=== PATIENT | male | born 1980 | race Two or more races ===

== ENCOUNTER 2017-11-08 16:22 | Emergency (ER) | payer SELFPAY ==
[~2017-11-08] VITALS: Ht 167.6 cm; Wt 90.7 kg
[2017-11-08] MEDS ORDERED: MORPHINE SULFATE 4 MG/ML SYR/VIAL ONE (17:13)
[2017-11-08] MEDS ORDERED: ONDANSETRON HCL 4 MG/2 ML VIAL IV ONE (17:13)
[2017-11-08] MEDS ORDERED: ONDANSETRON HCL 4 MG/2 ML VIAL ONE (17:13)
[2017-11-08] MEDS ORDERED: MORPHINE SULFATE 4 MG/ML SYR/VIAL IV ONE (17:13)
[2017-11-08 17:16] VITALS: BP 115/68
[2017-11-08] MEDS ORDERED: IOHEXOL 300 MG/ML 100ML BOTTLE IJ ONE (17:18)
[2017-11-08] MEDS ORDERED: KETOROLAC TROMETH 30 MG/ML 1ML VIAL IV ONE (18:30)
[2017-11-08 18:58] LABS: Basophils # (auto) 0 uL; Basophils % (auto) 0.2 % (0.0-2.0); Eosinophils # (auto) 0 uL; Hematocrit 46.3 % (41.0-53.0); Hemoglobin 15.1 g/dL (13.5-17.5); Lymphocytes # (auto) 2.1 uL; Mean Corpuscular Hemoglobin 28.9 pg (28.0-32.0); Mean Corpuscular Hgb Conc. 32.6 g/dL (32.0-36.0); Mean Corpuscular Volume 88.6 fL (80.0-100.0); Monocytes # (auto) 1.4 uL; Monocytes % (auto) 7.2 % (0.0-12.0); Neutrophils # (auto) 15.3 uL; Neutrophils % (auto) 81.6 % (37.0-80.0); Platelet Count (auto) 259 10^3/uL (140-450); Red Blood Cells 5.22 10^6/uL (4.5-5.90); Red Cell Distribution Width 13.9 % (11.8-14.3); White Blood Cell 18.7 10^3/uL (4.4-10.8)
[2017-11-08 19:11] LABS: Albumin 3.5 g/dL (3.4-5.0); BUN/Creatinine Ratio 7.1; Bilirubin, Total 0.5 mg/dL (0.2-1.0); Calcium 8.5 mg/dL (8.5-10.1); Potassium 3.4 mmol/L (3.5-5.1); Total Protein 7.5 g/dL (6.4-8.2)
[2017-11-08 19:13] LABS: INR 1.01 (0.9-1.15); Partial Thromboplastin Time 21.2 sec (23.78-33.04); Prothrombin Time 10.8 sec (9.27-12.13)
[2017-11-08] MEDS ORDERED: TETANUS IMMUNE GLOBULIN 250 UNIT/ML SYRG IM ONE (19:30)
[2017-11-08] MEDS ORDERED: TETANUS-DIPTH-ACEL PERTUSSIS 0.5ML SYRG IM ONE (19:33)
== END 2017-11-08 19:45 | disposition home or self-care (01) ==
LOC: ER 16:34
DX: S22.42XA Multiple fractures of ribs, left side, initial encounter for closed fracture (principal); S30.1XXA Contusion of abdominal wall, initial encounter; S70.12XA Contusion of left thigh, initial encounter; J93.9 Pneumothorax, unspecified; V29.49XA Motorcycle driver injured in collision with other motor vehicles in traffic accident, initial encounter; Y93.89 Activity, other specified; Y99.8 Other external cause status; Y92.89 Other specified places as the place of occurrence of the external cause
CPT/HCPCS: 36415; 70450; 71260; 72125; 73700; 74177; 80053; 85025; 85610; 85730; 90471; 90715; 93005; 94761; 96374; 96375; 99285; J1885; J2270; J2405; Q9967